=== PATIENT | female | born 1965 | race Caucasian/White ===

== ENCOUNTER 2024-09-23 12:54 | Emergency (ER) | payer OTHER, SELFPAY ==
[2024-09-23 13:00] VITALS: BP 129/82
--- NOTE | 2024-09-23 16:00 | ED.GENMED ---
History of Present Illness
General
Chief Complaint: DVT/Possible Blood Clot
Source: patient
Exam Limitations: none
Time Seen by Provider: 09/23/24 15:48
History of Present Illness
History of Present Illness:
59-year-old otherwise healthy female presents complaining of increasing swelling and bruising to the right leg. She states about 9 days ago she [place] was very dehydr[place] and developed a severe cramp to the right leg. She
thought nothing of it however she noticed bruising over the last couple days to the right calf. She works at [employer] and the PA there advised her to come here for evaluation of DVT. No chest pain or shortness of breath. She denies any
dark stools or bleeding gums
Phy Exam
Physical Exam
Physical Exam:
General: Well-appearing female no acute respiratory distress
HEENT: Normocephalic atraumatic
Heart: Regular rate and rhythm
Lungs: Clear
Extremities: Ecchymosis noted from the right calf and distal to the ankle. The calf is tender medially. There is edema noted in the right leg
Vascular: 2 DP pulse right foot compartments are soft
Course
Orders/Labs/Results
Orders:
Orders
09/23/24 13:04
US Periph Venous LOWER Ext RT Urgent
Comment:
Reason For Exam: Swelling and pain
Vital Signs
Initial and Last Documented VS:
Initial Vital Signs
Temp Pulse Resp BP Pulse Ox
98.2 F 86 16 129/82 99
09/23/24 13:00 09/23/24 13:00 09/23/24 13:00 09/23/24 13:00 09/23/24 13:00
Last Documented Vital Signs
Temp Pulse Resp BP Pulse Ox
98.2 F 86 16 129/82 99
09/23/24 13:00 09/23/24 13:00 09/23/24 13:00 09/23/24 13:00 09/23/24 13:00
MDM/Problems Addressed
Differential Diagnosis Includes:
Patient sent in for DVT rule out. Ultrasound was ordered through triage which was negative. She describes a cramp that was quite severe about 9 days ago. This could have strained her calf muscle and led to bleeding resulting in a hematoma. This
is most likely the case. Offered blood work to evaluate for any thrombocytopenia or anemia secondary to the bleeding however she declined. Advised warm compresses and elevation. Stable for discharge with follow-up
*Pulse Oximetry
SaO2: 99
Oxygen Mode of Delivery: Room air
Patient hypoxic: no
*Critical Care Note
Total Time (30-74mins, 75-104mins- exclusive of procedures): Not Applicable
ED Attending Note
-
Portions of this chart may have been created with voice recognition software.� Occasional wrong word or��sound alike� substitutions may have occurred due to the inherent limitations of voice recognition software.
Discharge Plan
Departure
Patient Disposition: Home (Routine Discharge)
Date of Disposition: 09/23/24
Time of Disposition: 16:02
Patient with high blood pressure during this ER visit?: No
Discharge Problem:
Hematoma
Instructions: Lower Extremity Muscle Strain
Activity Restrictions/Additional Instructions:
Elevate for swelling. Use ibuprofen or Tylenol for pain. Return if worse otherwise follow-up with family doctor
Discharge Date and Time
Print Language: [place]
== END 2024-09-23 16:32 | disposition home or self-care (01) ==
LOC: EMR 12:54
PROVIDERS: EMERGENCY PHYSICIAN Emergency Medicine; FAMILY PHYSICIAN Internal Medicine
DX: S80.11XA Contusion of right lower leg, initial encounter (principal); X58.XXXA Exposure to other specified factors, initial encounter; Y93.01 Activity, walking, marching and hiking
CPT/HCPCS: 99284; 93971